=== PATIENT | male | born 1955 | race Hispanic/Latino ===

== ENCOUNTER 2019-10-08 19:08 | Inpatient (IN) | payer OTHER ==
[~2019-10-08] VITALS: Ht 170.2 cm; Wt 129.7 kg
[~2019-10-08 19:08] MED LIST: ASPI-1012 PO; HYDR-4154 PO
[2019-10-08 20:15] LABS: APPEARANCE,URINE Clear (CLEAR); BILIRUBIN,URINE Negative (NEGATIVE); COLOR,URINE Yellow (YELLOW); GLUCOSE, URINE (UA) Negative (NEGATIVE); KETONES,URINE Negative (NEGATIVE); LEUKOCYTE ESTERASE ,URINE Negative (NEGATIVE); NITRATE,URINE Negative (NEGATIVE); OCCULT BLOOD,URINE Nonhemolyzed Trace (NEGATIVE); PROTEIN,URINE 300 mg/dL (NEGATIVE)
[2019-10-08 20:16] LABS: BASOPHILS % (AUTO) 0.3 % (0.0-5.0); EOSINOPHILS % (AUTO) 3.8 % (0.0-8.0); MEAN CORPUSCULAR HEMOGLOBIN 27.5 pg (27.0-33.0); MEAN CORPUSCULAR HGB CONC 32.8 g/dL (32.0-36.0); MEAN CORPUSCULAR VOLUME 83.9 fL (79-99); MONOCYTES % (AUTO) 8.2 % (3.0-13.0); NEUTROPHILS % (AUTO) 74.7 % (40.0-77.0); PLATELET COUNT (AUTO) 190 K/uL (130-400); RED BLOOD CELL COUNT(AUTO) 3.34 MIL/uL (4.50-6.20); WHITE BLOOD COUNT (AUTO) 10.2 K/uL (4.8-10.8)
[2019-10-08 20:28] LABS: CREATININE 1.3 mg/dL (0.5-1.5); INR 0.99 (0.85-1.15); PARTIAL THROMBOPLASTIN TIME 30.9 SEC (26.3-35.5); POTASSIUM 3.5 mmol/L (3.5-5.1); PROTHROMBIN TIME 10.4 SEC (9.6-11.6)
[2019-10-08 20:30] LABS: BACTERIA,URINE Few /HPF (None Seen); RBC,URINE 0-1 /HPF (0-1); SQUAMOUS EPITHELIAL CELL,UR 0-2 /HPF (0-2); WBC,URINE 0-1 /HPF (0-1)
[2019-10-08 20:33] LABS: ALBUMIN 2.3 g/dL (3.5-5.0); BILIRUBIN,TOTAL 0.3 mg/dL (0.2-1.0)
[2019-10-08 20:39] LABS: B-TYPE NATRIURETIC PEPTIDE 317 pg/mL (0-100)
[2019-10-08] MEDS ORDERED: FUROSEMIDE 10 MG/ML 4ML VIAL ONE (21:57)
[2019-10-08] MEDS ORDERED: NITROGLYCERIN 1GM/1 INCH PACKET TD ONE (21:57)
[2019-10-08 23:20] VITALS: BP 181/87
[2019-10-08] MEDS ORDERED: ONDANSETRON HCL 4 MG/2 ML VIAL IVP PRN (23:45)
[2019-10-08] MEDS ORDERED: IPRATROPIUM/ALBUTEROL SULFATE 3 ML SOLUTION IH PRN (23:45)
[2019-10-08] MEDS ORDERED: ACETAMINOPHEN 325 MG TAB PO PRN (23:45)
--- NOTE | 2019-10-08 23:48 | NUR ---
BENCH ERNESTINA PAGED ELEVATED BP
[2019-10-09] MEDS ORDERED: NITROGLYCERIN 1GM/1 INCH PACKET TD ONE (00:29)
[2019-10-09] MEDS: HYDRALAZINE HCL 20 MG/ML VIAL IV PRN ×2 (00:33→08:45)
[2019-10-09 03:01] LABS: HEMATOCRIT 29.1 % (42-54); MEAN CORPUSCULAR HGB CONC 32.4 g/dL (32.0-36.0); MEAN CORPUSCULAR VOLUME 83.3 fL (79-99); PLATELET COUNT (AUTO) 202 K/uL (130-400); RED CELL DISTRIBUTION WIDTH 15.8 % (11.0-15.5); WHITE BLOOD COUNT (AUTO) 10.8 K/uL (4.8-10.8)
[2019-10-09 03:16] LABS: CREATININE 1.3 mg/dL (0.5-1.5); MAGNESIUM 1.8 mg/dL (1.80-2.40); PHOSPHORUS 3.6 mg/dL (2.5-4.9); POTASSIUM 3.6 mmol/L (3.5-5.1)
[2019-10-09 04:00] VITALS: BP 151/76
[2019-10-09] MEDS: FUROSEMIDE 10 MG/ML 4ML VIAL IV SCH ×3 (05:25→21:44)
[2019-10-09] MEDS ORDERED: NITROGLYCERIN 0.2 MG/HR PATCH TD SCH (06:00)
[2019-10-09 08:00] VITALS: BP 179/81
[2019-10-09] MEDS: LEVOFLOXACIN 500 MG TABLET PO SCH (08:44)
[2019-10-09] MEDS ORDERED: PANTOPRAZOLE SODIUM 40 MG TABLET.DR PO SCH (09:00)
[2019-10-09] MEDS ORDERED: ASPIRIN 81MG TAB.CHEW PO SCH (09:00)
[2019-10-09 11:00] VITALS: BP 174/94
[2019-10-09] MEDS: NITROGLYCERIN 1GM/1 INCH PACKET TD SCH (13:40)
[2019-10-09 16:00] VITALS: BP 155/73
--- NOTE | 2019-10-09 16:25 | NUR ---
D/C PLAN CM spoke to pt regarding d/c planning. Pt lives with girlfriend. Reports she assists with ADL's. States he also has provider about 20 hrs/week. States he has rollator wk at home. Plan to home. Pt has declined short term snf/rehab. CM to f/u. Addendum: 10/09/19 at 1626 by BRIAN COMBS CM Amended: Links added.
[2019-10-09] MEDS ORDERED: MAGNESIUM 2GM PREMIX 50ML 50 ML IV PRN (17:00)
[2019-10-09] MEDS ORDERED: DEXTROSE 50%-WATER 50 ML DISP.SYRIN IV PRN (17:00)
[2019-10-09] MEDS ORDERED: POTASSIUM CHLORIDE 10% ELIXIR 20 MEQ/15 ML UDCUP PO PRN (17:00)
[2019-10-09] MEDS ORDERED: POTASSIUM CHLORIDE 20MEQ/100ML 100 ML IV PRN (17:00)
[2019-10-09] MEDS ORDERED: GLUCAGON 1MG KIT 1 MG ML IM PRN (17:00)
[2019-10-09] MEDS: HYDRALAZINE HCL 25 MG TABLET PO SCH ×2 (18:50→21:41)
[2019-10-09] MEDS ORDERED: SODIUM CHLORIDE 3% FOR INHALATION 4 ML/AMP VIAL.NEB IH ONE (19:04)
[2019-10-09 20:00] VITALS: BP 157/72
[2019-10-09] MEDS ORDERED: IOHEXOL-350 75 ML VIAL IV ONE ×2 (20:17→20:53)
[2019-10-09] MEDS: INSULIN HUMULIN R 100 UNIT/ML 3ML SQ SCH (21:00)
[2019-10-09] MEDS: ATORVASTATIN CALCIUM 40 MG TABLET PO SCH (21:42)
[2019-10-09 23:44] VITALS: BP 150/69
[2019-10-10] MEDS: NITROGLYCERIN 1GM/1 INCH PACKET TD SCH ×2 (01:12→09:24)
[2019-10-10] MEDS: GUAIFENESIN-DM 200/20 MG 10 ML PO PRN ×2 (01:12→12:51)
[2019-10-10] MEDS: FUROSEMIDE 10 MG/ML 4ML VIAL IV SCH ×4 (03:35→21:00)
[2019-10-10 03:46] VITALS: BP 161/67
[2019-10-10 05:47] LABS: BASOPHILS % (AUTO) 0.3 % (0.0-5.0); EOSINOPHILS % (AUTO) 4.1 % (0.0-8.0); HEMATOCRIT 30.9 % (42-54); LYMPHOCYTES % (AUTO) 12.2 % (21.0-51.0); MEAN CORPUSCULAR HEMOGLOBIN 27.1 pg (27.0-33.0); MEAN CORPUSCULAR HGB CONC 32.7 g/dL (32.0-36.0); NEUTROPHILS % (AUTO) 76.4 % (40.0-77.0); PLATELET COUNT (AUTO) 236 K/uL (130-400); RED BLOOD CELL COUNT(AUTO) 3.72 MIL/uL (4.50-6.20); RED CELL DISTRIBUTION WIDTH 15.5 % (11.0-15.5); WHITE BLOOD COUNT (AUTO) 10.9 K/uL (4.8-10.8)
[2019-10-10] MEDS: INSULIN HUMULIN R 100 UNIT/ML 3ML SQ SCH ×4 (06:05→21:00)
[2019-10-10 06:08] LABS: ALBUMIN 2.6 g/dL (3.5-5.0); BILIRUBIN,TOTAL 0.4 mg/dL (0.2-1.0); CREATININE 1.4 mg/dL (0.5-1.5); MAGNESIUM 1.8 mg/dL (1.80-2.40); PHOSPHORUS 3.4 mg/dL (2.5-4.9); POTASSIUM 3.4 mmol/L (3.5-5.1); TOTAL PROTEIN, SERUM 7.8 g/dL (6.0-8.3)
[2019-10-10 06:10] LABS: B-TYPE NATRIURETIC PEPTIDE 294 pg/mL (0-100)
[2019-10-10] MEDS: PANTOPRAZOLE SODIUM 40 MG TABLET.DR PO SCH (06:36)
[2019-10-10 07:30] VITALS: BP 175/88
[2019-10-10 08:50] LABS: ABG BASE EXCESS 2.5 mmol/L (-2.0-3.0); ABG HCO3 26.9 mmol/L (21.0-28.0); ABG PCO2 41 mmHg (35-48)
[2019-10-10] MEDS: HYDRALAZINE HCL 25 MG TABLET PO SCH ×3 (09:25→21:00)
[2019-10-10] MEDS: ENOXAPARIN SODIUM 40 MG/0.4 ML SYRINGE SQ SCH (09:25)
[2019-10-10] MEDS: ASPIRIN 325 MG TABLET PO SCH (09:26)
[2019-10-10 11:00] VITALS: BP 186/91
[2019-10-10] MEDS: POTASSIUM CHLORIDE 20 MEQ ERTAB PO PRN ×2 (12:54→19:11)
[2019-10-10 16:00] VITALS: BP 157/71
--- NOTE | 2019-10-10 16:08 | NUR ---
ORDER FOR SNF- PT DECLINED. WANTS TO RETURN HOME - WILL FOLLOW UP W DR. GERMAN TOUSSAINT FOR HH. ADIVSED PT THAT WE WILL SEND INFO TO DR. YOUSIF OFFICE TO HELP WITH THE PROCESS. CM TO FOLLOW UP WITH PMD OFFICE IN Addendum: 10/10/19 at 1609 by BREANNE LAMBERT RN CM Amended: Links added.
[2019-10-10] MEDS: LOSARTAN 50 MG TABLET PO SCH (19:16)
[2019-10-10 20:00] VITALS: BP 151/73
[2019-10-10] MEDS: ATORVASTATIN CALCIUM 40 MG TABLET PO SCH (22:16)
[2019-10-10] MEDS ORDERED: SERT100T12 PO ×2 (22:25)
[2019-10-10] MEDS ORDERED: DIAZ10TA4 PO (22:25)
[2019-10-10] MEDS ORDERED: METO-391 PO (22:25)
[2019-10-10 23:52] VITALS: BP 172/85
[2019-10-11] MEDS: HYDRALAZINE HCL 20 MG/ML VIAL IV PRN (00:05)
[2019-10-11 03:31] VITALS: BP 148/57
[2019-10-11 05:11] LABS: HEMATOCRIT 28.7 % (42-54); MEAN CORPUSCULAR HEMOGLOBIN 26.8 pg (27.0-33.0); MEAN CORPUSCULAR HGB CONC 32.5 g/dL (32.0-36.0); MEAN CORPUSCULAR VOLUME 82.7 fL (79-99); PLATELET COUNT (AUTO) 224 K/uL (130-400); RED BLOOD CELL COUNT(AUTO) 3.47 MIL/uL (4.50-6.20); RED CELL DISTRIBUTION WIDTH 15.5 % (11.0-15.5); WHITE BLOOD COUNT (AUTO) 10.4 K/uL (4.8-10.8)
[2019-10-11] MEDS: INSULIN HUMULIN R 100 UNIT/ML 3ML SQ SCH ×3 (05:33→16:30)
[2019-10-11 05:35] LABS: CREATININE 1.4 mg/dL (0.5-1.5); POTASSIUM 3.2 mmol/L (3.5-5.1)
[2019-10-11] MEDS: PANTOPRAZOLE SODIUM 40 MG TABLET.DR PO SCH (06:01)
[2019-10-11] MEDS: POTASSIUM CHLORIDE 20 MEQ ERTAB PO PRN ×2 (06:01→10:05)
[2019-10-11] MEDS: GUAIFENESIN-DM 200/20 MG 10 ML PO PRN ×2 (06:21→13:21)
[2019-10-11 07:30] VITALS: BP 136/62
[2019-10-11] MEDS ORDERED: LOSARTAN 50 MG TABLET PO SCH (09:00)
[2019-10-11] MEDS ORDERED: FUROSEMIDE 20 MG TABLET PO SCH (09:00)
[2019-10-11] MEDS ORDERED: LOSA50TA2 PO (09:33)
[2019-10-11] MEDS ORDERED: LEVO500T2 PO (09:33)
[2019-10-11] MEDS ORDERED: ATOR40TA69 PO (09:33)
[2019-10-11] MEDS ORDERED: FURO20TA6 PO (09:33)
[2019-10-11] MEDS: ASPIRIN 325 MG TABLET PO SCH (09:57)
[2019-10-11] MEDS: HYDRALAZINE HCL 25 MG TABLET PO SCH ×2 (09:58→13:21)
[2019-10-11] MEDS: LEVOFLOXACIN 500 MG TABLET PO SCH (09:59)
[2019-10-11] MEDS: ENOXAPARIN SODIUM 40 MG/0.4 ML SYRINGE SQ SCH (10:00)
[2019-10-11 11:00] VITALS: BP 146/88
[2019-10-11] MEDS ORDERED: HONEY 1 APPL/ML TUBE TP SCH (15:26)
[2019-10-11] MEDS: LOSARTAN 50 MG TABLET PO SCH (15:31)
--- NOTE | 2019-10-11 15:40 | NUR ---
[facility] CONSULT PATIENT ASSESSED REQUESTED: PATIENT PRESENTS WITH VENOUS ULCERS TO RIGHT LOWER LEG MEDIAL AND TO LEFT PRE TIB; [facility] RECOMMENDATIONS SUBMITTED. Addendum: 10/12/19 at 1324 by BERHANE VILLAVICENCIO LVN LVN W Amended: Links added.
[2019-10-11 16:00] VITALS: BP 172/77
--- NOTE | 2019-10-11 17:34 | NUR ---
Pt. D/c home Using teach back technique re; home meds, new meds, s/s to watch for and when to call md or 911. Follow up with your primary docytor or Family Nurse Practitioner: Bakari on; 10/12/2019 at 3:15pm. Call if unable to attend appointment. Follow up with your station mechanic Dr. Knight on; 11/02/2019 at 2:20pm. Call if unable to attend appointment. Follow up for 2D-Echocardiogram. If having shortness of breath or chest pain that does not resolve with rest call 911. If having fevers greater than 101. call your primary doctor. Limit your salt intake and Follow a 1.5 liter fluid restriction diet to prevent fluid retention. Change wounds daily with applying medihoney, adaptic, 4x4's and cover with kerlix gauze to both of your legs. Follow up with your primary doctor to set up home health for wound healing. Continue lasix, twic a day. and Continue levaquin antibiotic for wound healing and respiratory infection. IV discontinued, no bleeding, dressing changes done, and pictures taken, supplies given for 1 week, teachings done to family and patient and will follow up with primary for h/h. Denies any distress, or questions. Verbalized understanding regarding, dressing changes. Rx. given to patient.
== END 2019-10-11 18:15 | disposition home or self-care (01) | DRG 291 ==
LOC: EDH 19:08 → 3AH 21:51
PROVIDERS: ADMIT Internal Medicine; ATTEND Internal Medicine
DX: I13.0 Hypertensive heart and chronic kidney disease with heart failure and stage 1 through stage 4 chronic kidney disease, or unspecified chronic kidney disease (principal); J18.9 Pneumonia, unspecified organism; I50.33 Acute on chronic diastolic (congestive) heart failure; L97.909 Non-pressure chronic ulcer of unspecified part of unspecified lower leg with unspecified severity; I25.10 Atherosclerotic heart disease of native coronary artery without angina pectoris; E11.9 Type 2 diabetes mellitus without complications; I48.91 Unspecified atrial fibrillation; F41.9 Anxiety disorder, unspecified; D64.9 Anemia, unspecified; E78.5 Hyperlipidemia, unspecified; F32.9 Major depressive disorder, single episode, unspecified; I87.2 Venous insufficiency (chronic) (peripheral); N18.3 Chronic kidney disease, stage 3 (moderate); E11.22 Type 2 diabetes mellitus with diabetic chronic kidney disease; Z95.1 Presence of aortocoronary bypass graft; Z79.82 Long term (current) use of aspirin
CPT/HCPCS: 36415; 36600; 71045; 71275; 80048; 80053; 81001; 82550; 82803; 82948; 83735; 83880; 84100; 84484; 85025; 85027; 85610; 85730; 87071; 87077; 87186; 87205; 93005; 93970; 94640; 94660; 94664; 97039; G0378; J0360; J1650; J1940; Q9967

== ENCOUNTER → 2020-02-11 | Outpatient (CLI) | payer OTHER ==
[~2020-02-11] MED LIST changes: +ATOR40TA69 PO; +DIAZ10TA4 PO; +FURO20TA6 PO; +LEVO500T2 PO; +LOSA50TA2 PO; +METO-391 PO; +SERT100T12 PO
== END | disposition home or self-care (01) ==
LOC: SHCH 10:00
PROVIDERS: ATTEND Internal Medicine Cardiovascular Disease
DX: I87.2 Venous insufficiency (chronic) (peripheral) (principal)
CPT/HCPCS: 93970

== ENCOUNTER 2020-04-01 17:52 | Inpatient (IN) | payer OTHER ==
[~2020-04-01] VITALS: Ht 175.3 cm; Wt 106.1 kg
[2020-04-01 18:09] LABS: APPEARANCE,URINE Clear (CLEAR); BILIRUBIN,URINE Negative (NEGATIVE); COLOR,URINE Yellow (YELLOW); GLUCOSE, URINE (UA) Negative (NEGATIVE); KETONES,URINE Negative (NEGATIVE); LEUKOCYTE ESTERASE ,URINE Negative (NEGATIVE); NITRATE,URINE Negative (NEGATIVE); OCCULT BLOOD,URINE Negative (NEGATIVE); PROTEIN,URINE 300 mg/dL (NEGATIVE)
[2020-04-01 18:24] LABS: BACTERIA,URINE None Seen /HPF (None Seen); RBC,URINE 0-1 /HPF (0-1); SQUAMOUS EPITHELIAL CELL,UR Rare /HPF (0-2); WBC,URINE None Seen /HPF (0-1)
[2020-04-01 18:26] LABS: BASOPHILS % (AUTO) 0.3 % (0.0-5.0); EOSINOPHILS % (AUTO) 2.1 % (0.0-8.0); HEMATOCRIT 38.4 % (42-54); LYMPHOCYTES % (AUTO) 12.8 % (21.0-51.0); MEAN CORPUSCULAR HEMOGLOBIN 28.7 pg (27.0-33.0); MEAN CORPUSCULAR HGB CONC 33.3 g/dL (32.0-36.0); MEAN CORPUSCULAR VOLUME 86.1 fL (79-99); MONOCYTES % (AUTO) 7.1 % (3.0-13.0); PLATELET COUNT (AUTO) 200 K/uL (130-400); RED BLOOD CELL COUNT(AUTO) 4.46 MIL/uL (4.50-6.20); RED CELL DISTRIBUTION WIDTH 13.7 % (11.0-15.5); WHITE BLOOD COUNT (AUTO) 9.8 K/uL (4.8-10.8)
[2020-04-01] MEDS ORDERED: NICARDIPINE HCL 50 MG in SODIUM CHLORIDE 0.9% 230 ML IV SCH (18:30)
[2020-04-01 18:31] LABS: AMPHET/METH SCREEN,URINE NEGATIVE (NEGATIVE); BARBITURATE SCREEN, URINE NEGATIVE (NEGATIVE); BENZODIAZEPINES SCREEN,URINE NEGATIVE (NEGATIVE); CANNABINOID SCREEN,URINE NEGATIVE (NEGATIVE); COCAINE SCREEN,URINE NEGATIVE (NEGATIVE); OPIATE SCREEN,URINE NEGATIVE (NEGATIVE); PHENCYCLIDINE SCREEN,URINE NEGATIVE (NEGATIVE)
[2020-04-01 18:39] LABS: CREATININE 1.8 mg/dL (0.5-1.5); POTASSIUM 3.7 mmol/L (3.5-5.1)
[2020-04-01 18:43] LABS: ALBUMIN 2.7 g/dL (3.5-5.0); BILIRUBIN,TOTAL 0.3 mg/dL (0.2-1.0); TOTAL PROTEIN, SERUM 6.9 g/dL (6.0-8.3)
[2020-04-01] MEDS ORDERED: TEMAZEPAM 30 MG CAP ONE (19:49)
[2020-04-01] MEDS ORDERED: LORAZEPAM 0.5 MG TABLET ONE (19:49)
[2020-04-01] MEDS ORDERED: ONDANSETRON HCL 4 MG/2 ML VIAL IVP PRN (20:30)
[2020-04-01] MEDS ORDERED: TEMAZEPAM 15 MG CAPSULE PO PRN (20:30)
[2020-04-01 22:45] VITALS: BP 182/90
[2020-04-01] MEDS ORDERED: TRAZ-187 PO (23:13)
[2020-04-01] MEDS ORDERED: TIZA4TAB5 PO ×2 (23:13→23:14)
[2020-04-01] MEDS ORDERED: FENO135C4 PO (23:13)
[2020-04-01] MEDS ORDERED: HYDRALAZINE HCL 20 MG/ML VIAL ONE (23:37)
[2020-04-02 04:00] VITALS: BP 148/62
[2020-04-02 05:14] LABS: HEMATOCRIT 38.2 % (42-54); MEAN CORPUSCULAR HEMOGLOBIN 28.2 pg (27.0-33.0); MEAN CORPUSCULAR VOLUME 85.5 fL (79-99); RED BLOOD CELL COUNT(AUTO) 4.47 MIL/uL (4.50-6.20); RED CELL DISTRIBUTION WIDTH 13.8 % (11.0-15.5); WHITE BLOOD COUNT (AUTO) 12.3 K/uL (4.8-10.8)
[2020-04-02 05:27] LABS: CREATININE 1.8 mg/dL (0.5-1.5); POTASSIUM 3.2 mmol/L (3.5-5.1)
[2020-04-02] MEDS: HYDRALAZINE HCL 20 MG/ML VIAL IV PRN ×2 (07:55→20:29)
[2020-04-02 08:00] VITALS: BP 181/86
--- NOTE | 2020-04-02 08:00 | NUR ---
BLOOD PRESSURE BLOOD PRESSURE 181/86 , MEDICATED WITH HYDRALAZINE 10MG IVP QUYEN JULES NOTIFIED MANAGER REPORT , ORDER FOR CARDENE D/C AND DIET FOR HEALTH HEART ORDERED , WILL CONTINUE TO MONITOR
[2020-04-02] MEDS: SERTRALINE HCL 50 MG TABLET PO SCH (09:21)
[2020-04-02] MEDS: FAMOTIDINE 20MG TAB 20 MG TAB PO SCH (09:21)
[2020-04-02] MEDS: LOSARTAN 50 MG TABLET PO SCH (09:21)
[2020-04-02] MEDS: ASPIRIN 325 MG TABLET PO SCH (09:22)
[2020-04-02 11:28] VITALS: BP 143/69
[2020-04-02] MEDS ORDERED: LIDOCAINE HCL-MPF 1% 2ML VIAL IV PRN (12:30)
[2020-04-02] MEDS ORDERED: POTASSIUM CHLORIDE 20MEQ/100ML 100 ML IV PRN (12:30)
[2020-04-02] MEDS ORDERED: MAGNESIUM 2GM PREMIX 50ML 50 ML IV PRN (12:30)
[2020-04-02] MEDS ORDERED: POTASSIUM CHLORIDE 10% ELIXIR 20 MEQ/15 ML UDCUP PO PRN (12:30)
[2020-04-02] MEDS: POTASSIUM CHLORIDE 20 MEQ ERTAB PO PRN (12:59)
[2020-04-02] MEDS: ACETAMINOPHEN 325 MG TAB PO PRN (12:59)
[2020-04-02] MEDS: LISINOPRIL 5 MG TABLET PO SCH (14:37)
--- NOTE | 2020-04-02 14:39 | NUR ---
cm note met with patient and states resides at home , rents a room from a private boarder home. states he uses walker and cane for ambulation, has provider 26hrs /week for adls assist, states dc plan is back to home at time of dc. states no dc needs. Addendum: 04/02/20 at 1444 by DESI GREWAL CM Amended: Links added.
[2020-04-02 16:00] VITALS: BP 151/78
[2020-04-02 19:24] VITALS: BP 184/91
[2020-04-02] MEDS: ATORVASTATIN CALCIUM 40 MG TABLET PO SCH (20:28)
[2020-04-02 23:12] VITALS: BP 166/75
[2020-04-03 02:08] LABS: HEMATOCRIT 38.3 % (42-54); MEAN CORPUSCULAR HEMOGLOBIN 28.7 pg (27.0-33.0); MEAN CORPUSCULAR HGB CONC 33.2 g/dL (32.0-36.0); MEAN CORPUSCULAR VOLUME 86.5 fL (79-99); RED BLOOD CELL COUNT(AUTO) 4.43 MIL/uL (4.50-6.20); RED CELL DISTRIBUTION WIDTH 13.9 % (11.0-15.5); WHITE BLOOD COUNT (AUTO) 11.5 K/uL (4.8-10.8)
[2020-04-03 02:31] LABS: ALBUMIN 2.5 g/dL (3.5-5.0); BILIRUBIN,DIRECT 0.1 mg/dL (0.0-0.3); BILIRUBIN,TOTAL 0.4 mg/dL (0.2-1.0); CREATININE 1.7 mg/dL (0.5-1.5); MAGNESIUM 2.9 mg/dL (1.80-2.40); PHOSPHORUS 3.9 mg/dL (2.5-4.9); POTASSIUM 3.8 mmol/L (3.5-5.1); TOTAL PROTEIN, SERUM 6.3 g/dL (6.0-8.3)
[2020-04-03 03:00] VITALS: BP 152/67
[2020-04-03 08:06] VITALS: BP 155/79
[2020-04-03] MEDS: TAMSULOSIN HCL 0.4 MG CAP.ER.24H PO SCH (09:15)
[2020-04-03] MEDS: LOSARTAN 50 MG TABLET PO SCH (09:16)
[2020-04-03] MEDS: LISINOPRIL 5 MG TABLET PO SCH (09:16)
[2020-04-03] MEDS: FAMOTIDINE 20MG TAB 20 MG TAB PO SCH (09:16)
[2020-04-03] MEDS: SERTRALINE HCL 50 MG TABLET PO SCH (09:17)
[2020-04-03] MEDS: ASPIRIN 325 MG TABLET PO SCH (09:17)
[2020-04-03] MEDS: ACETAMINOPHEN 325 MG TAB PO PRN (09:24)
[2020-04-03 11:00] VITALS: BP 149/67
[2020-04-03 15:34] VITALS: BP 162/75
[2020-04-03 19:00] VITALS: BP 173/89
[2020-04-03] MEDS: ATORVASTATIN CALCIUM 40 MG TABLET PO SCH (20:54)
[2020-04-03] MEDS: LORAZEPAM 0.5 MG TABLET PO PRN (20:54)
[2020-04-03] MEDS: POTASSIUM CHLORIDE 20 MEQ ERTAB PO PRN (20:55)
[2020-04-04] VITALS (7 sets, daily range): BP systolic 130–179; BP diastolic 58–87
[2020-04-04 03:54] LABS: HEMATOCRIT 38.5 % (42-54); MEAN CORPUSCULAR HGB CONC 33.2 g/dL (32.0-36.0); MEAN CORPUSCULAR VOLUME 87.1 fL (79-99); RED BLOOD CELL COUNT(AUTO) 4.42 MIL/uL (4.50-6.20); RED CELL DISTRIBUTION WIDTH 13.9 % (11.0-15.5); WHITE BLOOD COUNT (AUTO) 10.2 K/uL (4.8-10.8)
[2020-04-04 04:11] LABS: CREATININE 1.8 mg/dL (0.5-1.5); POTASSIUM 3.7 mmol/L (3.5-5.1)
[2020-04-04] MEDS: HYDRALAZINE HCL 20 MG/ML VIAL IV PRN ×2 (05:56→14:09)
[2020-04-04] MEDS: POTASSIUM CHLORIDE 20 MEQ ERTAB PO PRN ×2 (05:58→08:54)
[2020-04-04] MEDS: FAMOTIDINE 20MG TAB 20 MG TAB PO SCH (08:53)
[2020-04-04] MEDS: ASPIRIN 325 MG TABLET PO SCH (08:54)
[2020-04-04] MEDS: SERTRALINE HCL 50 MG TABLET PO SCH (08:54)
[2020-04-04] MEDS: LOSARTAN 50 MG TABLET PO SCH (08:54)
[2020-04-04] MEDS: TAMSULOSIN HCL 0.4 MG CAP.ER.24H PO SCH (08:54)
[2020-04-04] MEDS: LISINOPRIL 5 MG TABLET PO SCH (08:54)
[2020-04-04] MEDS: ACETAMINOPHEN 325 MG TAB PO PRN (08:57)
[2020-04-04] MEDS: METOPROLOL SUCCINATE 50 MG TAB.SR.24H PO SCH (20:21)
[2020-04-04] MEDS: ATORVASTATIN CALCIUM 40 MG TABLET PO SCH (20:21)
[2020-04-04] MEDS: LORAZEPAM 0.5 MG TABLET PO PRN (20:28)
[2020-04-05] VITALS (7 sets, daily range): BP systolic 129–189; BP diastolic 61–89
[2020-04-05] MEDS: HYDRALAZINE HCL 20 MG/ML VIAL IV PRN (05:12)
--- NOTE | 2020-04-05 08:00 | NUR ---
note AAOX3. NPO FOR HIDA SCAN TODAY. HE CAME IN WITH ABDOMINAL DISCOMFORT AND UNCONTROLLED HTN. US ABDOMEN AND CT SHOW GALLSTONES AND BORDERLINE GB WALL THICKENING. SURGERY CONSULT WAS ORDERED YESTERDAY. WILL RELAY RESULTS FROM HIDA TO SURGEON.
[2020-04-05] MEDS ORDERED: LOSARTAN 50 MG TABLET PO SCH (09:00)
[2020-04-05] MEDS: TAMSULOSIN HCL 0.4 MG CAP.ER.24H PO SCH (12:04)
[2020-04-05] MEDS: FAMOTIDINE 20MG TAB 20 MG TAB PO SCH (12:04)
[2020-04-05] MEDS: SERTRALINE HCL 50 MG TABLET PO SCH (12:05)
[2020-04-05] MEDS: METOPROLOL SUCCINATE 50 MG TAB.SR.24H PO SCH ×2 (12:05→20:28)
[2020-04-05] MEDS: ASPIRIN 325 MG TABLET PO SCH (12:05)
[2020-04-05] MEDS: HYDRALAZINE HCL 25 MG TABLET PO SCH ×2 (17:06→20:28)
[2020-04-05] MEDS: ZOSYN 3.375GM+NS 50ML 50 ML IV SCH ×2 (17:07→23:42)
--- NOTE | 2020-04-05 17:45 | NUR ---
NOTE SPOKE TO ANISH YIP FOR DR KRUGER AND ARA AND HE TOLD ME THAT NO SURGERY RECOMMENDED AT THIS TIME. INFORMED STUART ROY ABOUT THIS. AND RESULTS FROM HIDA SCAN SINCE THEY WERE NOT AVAILABLE WHEN SHE ROUNDED.
[2020-04-05] MEDS: ACETAMINOPHEN 325 MG TAB PO PRN (20:28)
[2020-04-05] MEDS: ATORVASTATIN CALCIUM 40 MG TABLET PO SCH (20:28)
[2020-04-05] MEDS: LORAZEPAM 0.5 MG TABLET PO PRN (23:42)
[2020-04-06 04:00] VITALS: BP 148/76
[2020-04-06 04:16] LABS: BASOPHILS % (AUTO) 0.4 % (0.0-5.0); EOSINOPHILS % (AUTO) 3.1 % (0.0-8.0); HEMATOCRIT 40.3 % (42-54); MEAN CORPUSCULAR HEMOGLOBIN 28.5 pg (27.0-33.0); MEAN CORPUSCULAR HGB CONC 32.3 g/dL (32.0-36.0); MEAN CORPUSCULAR VOLUME 88.4 fL (79-99); MONOCYTES % (AUTO) 7.8 % (3.0-13.0); NEUTROPHILS % (AUTO) 70.1 % (40.0-77.0); PLATELET COUNT (AUTO) 216 K/uL (130-400); RED BLOOD CELL COUNT(AUTO) 4.56 MIL/uL (4.50-6.20); WHITE BLOOD COUNT (AUTO) 10.1 K/uL (4.8-10.8)
[2020-04-06 04:34] LABS: ALBUMIN 2.6 g/dL (3.5-5.0); BILIRUBIN,TOTAL 0.4 mg/dL (0.2-1.0); MAGNESIUM 2.2 mg/dL (1.80-2.40); POTASSIUM 3.9 mmol/L (3.5-5.1); TOTAL PROTEIN, SERUM 6.6 g/dL (6.0-8.3)
[2020-04-06 07:52] VITALS: BP 164/80
[2020-04-06] MEDS: METOPROLOL SUCCINATE 50 MG TAB.SR.24H PO SCH (08:06)
[2020-04-06] MEDS: FAMOTIDINE 20MG TAB 20 MG TAB PO SCH (08:06)
[2020-04-06] MEDS: HYDRALAZINE HCL 25 MG TABLET PO SCH (08:07)
[2020-04-06] MEDS: TAMSULOSIN HCL 0.4 MG CAP.ER.24H PO SCH (08:07)
[2020-04-06] MEDS: SERTRALINE HCL 50 MG TABLET PO SCH (08:07)
[2020-04-06] MEDS: ASPIRIN 325 MG TABLET PO SCH (08:07)
[2020-04-06] MEDS: ZOSYN 3.375GM+NS 50ML 50 ML IV SCH (08:08)
[2020-04-06] MEDS ORDERED: ASPI-1197 PO (11:13)
[2020-04-06] MEDS ORDERED: TAMS-1 PO (11:13)
[2020-04-06] MEDS ORDERED: HYDR25 PO (11:13)
[2020-04-06 11:47] VITALS: BP 154/65
--- NOTE | 2020-04-06 11:59 | NUR ---
BLADDER SCAN 200CC VOIDED. 126CC VIA BLADDER SCAN. PER SUSY PARSON TO [place]
[2020-04-06] MEDS ORDERED: LACTULOSE 20 GM/30 ML UDCUP PO SCH (12:00)
== END 2020-04-06 13:20 | disposition home or self-care (01) | DRG 304 ==
LOC: EDH 17:52 → INTOOBSV 19:26 → OBSVTOIN 19:26 → EDHIP 19:26 → DAHIP 21:11 → 4CH 21:47
PROVIDERS: ADMIT Internal Medicine Critical Care Medicine; ATTEND Internal Medicine Critical Care Medicine
DX: I16.0 Hypertensive urgency (principal); E43 Unspecified severe protein-calorie malnutrition; K80.70 Calculus of gallbladder and bile duct without cholecystitis without obstruction; R33.9 Retention of urine, unspecified; I25.10 Atherosclerotic heart disease of native coronary artery without angina pectoris; F41.9 Anxiety disorder, unspecified; E11.9 Type 2 diabetes mellitus without complications; Z95.5 Presence of coronary angioplasty implant and graft; Z95.1 Presence of aortocoronary bypass graft; E66.9 Obesity, unspecified; Z79.899 Other long term (current) drug therapy; Z68.34 Body mass index [BMI] 34.0-34.9, adult; I10 Essential (primary) hypertension; N19 Unspecified kidney failure; Z79.82 Long term (current) use of aspirin; Z86.14 Personal history of Methicillin resistant Staphylococcus aureus infection; Z88.5 Allergy status to narcotic agent; F32.9 Major depressive disorder, single episode, unspecified
CPT/HCPCS: 36415; 71045; 74176; 76705; 76770; 78226; 80048; 80053; 80076; 80305; 81001; 82150; 82550; 82948; 83690; 83735; 83880; 84100; 84132; 84484; 85025; 85027; 93005; A9537; G0378; J0360; J2543; J3490; J7050

== ENCOUNTER 2020-10-05 16:12 | Inpatient (IN) | payer OTHER ==
[~2020-10-05] VITALS: Ht 175.3 cm; Wt 107.5 kg
[~2020-10-05 16:12] MED LIST changes: -ASPI-1012 PO; +ASPI-1197 PO; -DIAZ10TA4 PO; +FENO135C4 PO; -FURO20TA6 PO; -HYDR-4154 PO; +HYDR25 PO; -LEVO500T2 PO; -LOSA50TA2 PO; +TAMS-1 PO; +TIZA4TAB5 PO; +TRAZ-187 PO
[2020-10-05 17:47] LABS: BASOPHILS % (AUTO) 0.6 % (0.0-5.0); EOSINOPHILS % (AUTO) 2.8 % (0.0-8.0); HEMATOCRIT 32.7 % (42-54); LYMPHOCYTES % (AUTO) 13.6 % (21.0-51.0); MEAN CORPUSCULAR HEMOGLOBIN 29.1 pg (27.0-33.0); MEAN CORPUSCULAR HGB CONC 31.2 g/dL (32.0-36.0); MEAN CORPUSCULAR VOLUME 93.2 fL (79-99); MONOCYTES % (AUTO) 8.9 % (3.0-13.0); NEUTROPHILS % (AUTO) 73.2 % (40.0-77.0); PLATELET COUNT (AUTO) 181 K/uL (130-400); RED BLOOD CELL COUNT(AUTO) 3.51 MIL/uL (4.50-6.20); RED CELL DISTRIBUTION WIDTH 14.3 % (11.0-15.5); WHITE BLOOD COUNT (AUTO) 9.1 K/uL (4.8-10.8)
[2020-10-05 18:03] LABS: ALBUMIN 3.4 g/dL (3.5-5.0); BILIRUBIN,TOTAL 0.3 mg/dL (0.2-1.0); CREATININE 2.7 mg/dL (0.5-1.5); POTASSIUM 4.9 mmol/L (3.5-5.1); TOTAL PROTEIN, SERUM 7.3 g/dL (6.0-8.3)
[2020-10-05 18:12] LABS: B-TYPE NATRIURETIC PEPTIDE 1020 pg/mL (0-100)
[2020-10-05 18:25] LABS: PARTIAL THROMBOPLASTIN TIME 27.1 SEC (26.3-35.5); PROTHROMBIN TIME 10.8 SEC (9.6-11.6)
[2020-10-05 18:58] VITALS: BP 119/71
[2020-10-05] MEDS ORDERED: NON-FORMULARY MEDICATION 1 EACH (Tizanidine HCl 4 MG) PO SCH (21:00)
[2020-10-05] MEDS: TRAZODONE HCL 100 MG TABLET PO SCH (21:48)
[2020-10-05] MEDS: ATORVASTATIN CALCIUM 40 MG TABLET PO SCH (21:48)
[2020-10-05] MEDS: TIZANIDINE HCL 2 MG TABLET PO SCH (21:52)
[2020-10-05] MEDS ORDERED: SPIR25TA6 PO (23:17)
[2020-10-05] MEDS ORDERED: GABA600T10 PO (23:17)
[2020-10-05] MEDS ORDERED: HYDR-3420 PO (23:17)
[2020-10-05] MEDS ORDERED: FURO40TA5 PO (23:17)
[2020-10-05] MEDS ORDERED: AMLO-257 PO (23:17)
[2020-10-05] MEDS ORDERED: LOSA100T58 PO (23:17)
--- NOTE | 2020-10-05 23:19 | NUR ---
HOME MEDICATIONS HAVE BEEN UPDATED INTO RECONCILE MEDS- PER PT'S MAR FROM [facility]
[2020-10-05] MEDS: HYDRALAZINE HCL 25 MG TABLET PO SCH (23:48)
[2020-10-05 23:57] VITALS: BP 152/63
--- NOTE | 2020-10-06 00:02 | NUR ---
note PT REPORTS THE BIPAP FEELS "TOO STRONG". PAGED LÓPEZ, RT - SAID HE WOULD COME RESSESS THE PT. INFORMED PT THAT I NEED TO BLADDER SCAN HIM AFTER HE VOIDS, TO CALL ME ON THE CALL LIGHT ONCE HE VOIDS-PT VERBALIZED AGREEMENT. CALL LIGHT ON PT'S LAP WITHIN REACH.
[2020-10-06 04:00] VITALS: BP 146/66
--- NOTE | 2020-10-06 06:00 | NUR ---
GARCIA INSERTED PER WILLIS'S STANDING ORDER- REFER TO NURSING COMMUNICATION. BLADDER SCAN RESIDUAL >416 ML. INFORMED PT OF NECESSITY FOR FC AND PT EDUCATION, PT AGREED TO HAVING FC INSERTED. PERICARE PROVIDED. STERILE TECHNIQUE USED DURING NURSING INTERVENTION. 16 FR FC INSERTED W/O C/O PAIN OR DISCOMFORT. 600 CC CLEAR, YELLOW, URINE FLOWED FREELY INTO GARCIA BAG. SECURED BAG TO RIGHT THIGH. BED HANGIN ON NON-MOVEABLE PART OF BED FRAME. BARD CEO NA GARCIA BAG, AND IN PT CHART.
[2020-10-06] MEDS ORDERED: SODIUM CHLORIDE 0.9% 1000ML 1,000 ML IV SCH (07:30)
[2020-10-06 08:00] VITALS: BP 164/70
[2020-10-06 08:11] LABS: CREATININE 2.6 mg/dL (0.5-1.5); POTASSIUM 4.6 mmol/L (3.5-5.1)
--- NOTE | 2020-10-06 08:13 | NUR ---
ISOLATION STATUS ENHANCED DUE TO PUI STATUS. Addendum: 10/06/20 at 0824 by GERARDO PULLIAM RN RN Amended: Links added.
[2020-10-06] MEDS: FENOFIBRIC ACID 135 MG PO SCH (08:55)
[2020-10-06] MEDS ORDERED: NON-FORMULARY MEDICATION 1 EACH (Sertraline HCl 100 MG) PO SCH (09:00)
[2020-10-06] MEDS ORDERED: METOPROLOL SUCCINATE 50 MG TAB.SR.24H PO SCH (09:00)
[2020-10-06] MEDS ORDERED: FENOFIBRIC ACID 135 MG PO SCH (09:00)
[2020-10-06] MEDS: ASPIRIN 81MG TAB.CHEW PO SCH (09:05)
[2020-10-06] MEDS: SERTRALINE HCL 50 MG TABLET PO SCH (09:05)
[2020-10-06] MEDS: TAMSULOSIN HCL 0.4 MG CAP.ER.24H PO SCH (09:05)
[2020-10-06] MEDS: HYDRALAZINE HCL 25 MG TABLET PO SCH ×3 (09:05→22:13)
[2020-10-06 10:56] LABS: RETICULOCYTE % (AUTO) 2.28 % (0.42-2.23)
[2020-10-06] MEDS ORDERED: HYDRALAZINE HCL 20 MG/ML VIAL IV PRN (11:00)
[2020-10-06 11:36] LABS: % IRON SATURATION 15.2 % (30-44)
--- NOTE | 2020-10-06 11:38 | NUR ---
[facility] DC Wine Sales Representative spoke to pt's spouse Ml Luis discussed dc plans. Pt is semi-independent prior to admission, lives at home with spouse. Pt has a cane, walker, oxygen concentrator, provider 25hrs/wk(spouse is provider). Denies any other equipments/services. Feels safe to go back home, spouse able to assist with transportation and need as necessary. DC plan to home once stable. CM to continue to follow up. Addendum: 10/06/20 at 1140 by MICHA ROMERO LVN Amended: Links added.
[2020-10-06 12:00] VITALS: BP 142/55
[2020-10-06 13:41] LABS: APPEARANCE,URINE Clear (CLEAR); BILIRUBIN,URINE Negative (NEGATIVE); COLOR,URINE Yellow (YELLOW); GLUCOSE, URINE (UA) Negative (NEGATIVE); KETONES,URINE Negative (NEGATIVE); LEUKOCYTE ESTERASE ,URINE Trace (NEGATIVE); NITRATE,URINE Negative (NEGATIVE); OCCULT BLOOD,URINE Trace (NEGATIVE); PROTEIN,URINE POS 2+ mg/dL (NEGATIVE); UROBILINOGEN,URINE 0.2 mg/dL (0.2-1.0)
[2020-10-06 14:05] LABS: BACTERIA,URINE Few /HPF (None Seen); SQUAMOUS EPITHELIAL CELL,UR 0-2 /HPF (0-2); WBC,URINE 0-1 /HPF (0-1)
[2020-10-06 16:00] VITALS: BP 153/52
--- NOTE | 2020-10-06 16:36 | NUR ---
RD NOTIFICATION Pt admitted with CHF Exacerbation. Enhanced Isolation, COVID PUI. Pt history of Triple Bypass Sx, CHF. Pt with 75gm CC diet order in place. No report of GI distress. Monitored labs: BUN 43, Cr 2.6, GFR 26, Alk 46, NH3 47, Alb 3.4. Obesity Class III. Recommend add Renal Non-Dialysis, Heart Healthy diet modification. RD to follow up with Nutrition Education
--- NOTE | 2020-10-06 16:44 | NUR ---
1640 UNABLE TO GET SIGNATURE FOR IM LETTER,PATIENT ON ENHANCED PRECAUTIONS. NO ANSWER VIA PHONE,WILL EMAIL FINANCIAL COUNSELORS TO ASSIST OVER WEEKEND.
[2020-10-06] MEDS: FUROSEMIDE 10 MG/ML 4ML VIAL IV SCH (17:56)
[2020-10-06 20:00] VITALS: BP 148/38
[2020-10-06] MEDS: TRAZODONE HCL 100 MG TABLET PO SCH (22:10)
[2020-10-06] MEDS: ATORVASTATIN CALCIUM 40 MG TABLET PO SCH (22:10)
[2020-10-06] MEDS: TIZANIDINE HCL 2 MG TABLET PO SCH (22:10)
[2020-10-06] MEDS: METOPROLOL TARTRATE 25 MG TAB PO SCH (22:11)
[2020-10-07] VITALS (7 sets, daily range): BP systolic 130–153; BP diastolic 56–70
[2020-10-07] MEDS: FUROSEMIDE 10 MG/ML 4ML VIAL IV SCH ×3 (01:13→16:36)
[2020-10-07 06:04] LABS: HEMATOCRIT 30.3 % (42-54); MEAN CORPUSCULAR HEMOGLOBIN 28.9 pg (27.0-33.0); MEAN CORPUSCULAR HGB CONC 32.7 g/dL (32.0-36.0); MEAN CORPUSCULAR VOLUME 88.6 fL (79-99); RED BLOOD CELL COUNT(AUTO) 3.42 MIL/uL (4.50-6.20); RED CELL DISTRIBUTION WIDTH 13.5 % (11.0-15.5); WHITE BLOOD COUNT (AUTO) 9.7 K/uL (4.8-10.8)
[2020-10-07 06:18] LABS: CREATININE 2.6 mg/dL (0.5-1.5); POTASSIUM 3.8 mmol/L (3.5-5.1)
[2020-10-07] MEDS: FENOFIBRIC ACID 135 MG PO SCH (08:41)
[2020-10-07] MEDS: FAMOTIDINE 20MG TAB 20 MG TAB PO SCH (08:50)
[2020-10-07] MEDS: ASPIRIN 81MG TAB.CHEW PO SCH (08:50)
[2020-10-07] MEDS: TAMSULOSIN HCL 0.4 MG CAP.ER.24H PO SCH (08:50)
[2020-10-07] MEDS: SERTRALINE HCL 50 MG TABLET PO SCH (08:50)
[2020-10-07] MEDS: HYDRALAZINE HCL 25 MG TABLET PO SCH ×3 (08:53→20:51)
[2020-10-07] MEDS: AMLODIPINE BESYLATE 5 MG TAB PO SCH (08:54)
[2020-10-07] MEDS: METOPROLOL TARTRATE 25 MG TAB PO SCH ×2 (08:54→20:51)
[2020-10-07] MEDS: ENOXAPARIN SODIUM 30 MG/0.3 ML SQ SCH (08:55)
--- NOTE | 2020-10-07 13:11 | NUR ---
95% pre 90% during ( lowest) 95% post 6 MWT on room air HR 65-82 bpm Addendum: 10/07/20 at 1313 by KRISHNA LOMBARDI, PT PT Amended: Links added.
[2020-10-07] MEDS: TIZANIDINE HCL 2 MG TABLET PO SCH (20:51)
[2020-10-07] MEDS: ATORVASTATIN CALCIUM 40 MG TABLET PO SCH (20:51)
[2020-10-07] MEDS: TRAZODONE HCL 100 MG TABLET PO SCH (20:51)
[2020-10-08] MEDS ORDERED: LIDOCAINE HCL 2% JELLY 5 ML ONE (01:16)
[2020-10-08] MEDS: FUROSEMIDE 10 MG/ML 4ML VIAL IV SCH ×2 (01:33→16:28)
[2020-10-08 04:00] VITALS: BP 152/70
--- NOTE | 2020-10-08 04:00 | NUR ---
NOTE PT C/O DISCOMFORT AT GARCIA INSERTION SITE. PROVIDED DELIA CARE. DRIED AREA AND APPLIED LIDOCAINE JELL TO URINARY MEATUS. AFTER APPLYING JELL, PT REPORTS HE FEELS THE DISCOMFORT "VERY MINIMAL NOW". WILL PASS ALONG IN REPORT TO DAY SHIFT NURSE TO FOLLOW UP THROUGHOUT THE DAY AND INFORM ROUNDING PHYSICIAN.
[2020-10-08 06:03] LABS: CREATININE 2.8 mg/dL (0.5-1.5); MAGNESIUM 2.1 mg/dL (1.80-2.40); POTASSIUM 3.4 mmol/L (3.5-5.1)
[2020-10-08 06:05] LABS: HEMOGLOBIN A1C 5.5 % (4.0-6.0)
[2020-10-08 08:00] VITALS: BP 150/60
[2020-10-08] MEDS: AMLODIPINE BESYLATE 5 MG TAB PO SCH (08:37)
[2020-10-08] MEDS: SERTRALINE HCL 50 MG TABLET PO SCH (08:37)
[2020-10-08] MEDS: FAMOTIDINE 20MG TAB 20 MG TAB PO SCH (08:37)
[2020-10-08] MEDS: ASPIRIN 81MG TAB.CHEW PO SCH (08:38)
[2020-10-08] MEDS: METOPROLOL TARTRATE 25 MG TAB PO SCH ×2 (08:38→21:12)
[2020-10-08] MEDS: FENOFIBRIC ACID 135 MG PO SCH (08:39)
[2020-10-08] MEDS: TAMSULOSIN HCL 0.4 MG CAP.ER.24H PO SCH (08:39)
[2020-10-08] MEDS: ENOXAPARIN SODIUM 30 MG/0.3 ML SQ SCH (08:39)
[2020-10-08] MEDS: HYDRALAZINE HCL 25 MG TABLET PO SCH ×3 (08:42→21:12)
[2020-10-08] MEDS ORDERED: FUROSEMIDE 40 MG TABLET PO SCH (09:00)
[2020-10-08 11:00] VITALS: BP 162/66
[2020-10-08 16:00] VITALS: BP 181/55
[2020-10-08 20:00] VITALS: BP 133/54
[2020-10-08] MEDS: ISOSORBIDE MONO 30MG TAB SR PO SCH (21:12)
[2020-10-08] MEDS: ATORVASTATIN CALCIUM 40 MG TABLET PO SCH (21:12)
[2020-10-08] MEDS: TRAZODONE HCL 100 MG TABLET PO SCH (21:12)
[2020-10-08] MEDS: TIZANIDINE HCL 2 MG TABLET PO SCH (21:12)
[2020-10-09] VITALS: BP 123/57
--- NOTE | 2020-10-09 03:32 | NUR ---
TELEMETRY Notified per telemetry pt has episode of wide complex rhythm,rate 60's.Pt denies chesp pain or sob.Vs taken per staff.
[2020-10-09 03:35] VITALS: BP 113/69
[2020-10-09] MEDS: FUROSEMIDE 10 MG/ML 4ML VIAL IV SCH (03:47)
[2020-10-09 06:30] LABS: CREATININE 2.9 mg/dL (0.5-1.5); MAGNESIUM 2.3 mg/dL (1.80-2.40); POTASSIUM 3.3 mmol/L (3.5-5.1)
[2020-10-09 07:57] VITALS: BP 122/64
[2020-10-09] MEDS: FENOFIBRIC ACID 135 MG PO SCH (09:00)
[2020-10-09] MEDS: METOPROLOL TARTRATE 25 MG TAB PO SCH ×2 (09:00→20:22)
[2020-10-09] MEDS ORDERED: FUROSEMIDE 10 MG/ML 4ML VIAL IV SCH (09:00)
[2020-10-09] MEDS: FAMOTIDINE 20MG TAB 20 MG TAB PO SCH (09:27)
[2020-10-09] MEDS: TAMSULOSIN HCL 0.4 MG CAP.ER.24H PO SCH (09:27)
[2020-10-09] MEDS: ASPIRIN 81MG TAB.CHEW PO SCH (09:27)
[2020-10-09] MEDS: HYDRALAZINE HCL 25 MG TABLET PO SCH ×3 (09:27→20:23)
[2020-10-09] MEDS: SERTRALINE HCL 50 MG TABLET PO SCH (09:27)
[2020-10-09] MEDS: ISOSORBIDE MONO 30MG TAB SR PO SCH ×2 (09:28→20:22)
[2020-10-09] MEDS: ENOXAPARIN SODIUM 30 MG/0.3 ML SQ SCH (09:29)
[2020-10-09 11:32] VITALS: BP 130/62
[2020-10-09] MEDS: PHENAZOPYRIDINE HCL 200 MG TABLET PO SCH ×2 (14:53→20:22)
[2020-10-09 16:56] VITALS: BP 135/59
[2020-10-09] MEDS ORDERED: FUROSEMIDE 40 MG TABLET PO SCH (17:00)
[2020-10-09 20:00] VITALS: BP 123/64
[2020-10-09] MEDS: TRAZODONE HCL 100 MG TABLET PO SCH (20:22)
[2020-10-09] MEDS: TIZANIDINE HCL 2 MG TABLET PO SCH (20:22)
[2020-10-09] MEDS: ATORVASTATIN CALCIUM 40 MG TABLET PO SCH (20:23)
[2020-10-10] VITALS: BP 134/64
[2020-10-10 04:00] VITALS: BP 128/62
[2020-10-10 05:25] LABS: HEMATOCRIT 31.1 % (42-54); MEAN CORPUSCULAR HEMOGLOBIN 28.9 pg (27.0-33.0); MEAN CORPUSCULAR HGB CONC 33.1 g/dL (32.0-36.0); MEAN CORPUSCULAR VOLUME 87.4 fL (79-99); RED BLOOD CELL COUNT(AUTO) 3.56 MIL/uL (4.50-6.20); RED CELL DISTRIBUTION WIDTH 13.2 % (11.0-15.5); WHITE BLOOD COUNT (AUTO) 10.1 K/uL (4.8-10.8)
[2020-10-10 05:35] LABS: CREATININE 3.1 mg/dL (0.5-1.5); POTASSIUM 3.4 mmol/L (3.5-5.1)
[2020-10-10 07:53] VITALS: BP 123/61
[2020-10-10] MEDS: FENOFIBRIC ACID 135 MG PO SCH (09:00)
[2020-10-10] MEDS: PHENAZOPYRIDINE HCL 200 MG TABLET PO SCH ×3 (09:16→22:03)
[2020-10-10] MEDS: METOPROLOL TARTRATE 25 MG TAB PO SCH ×2 (09:16→22:03)
[2020-10-10] MEDS: HYDRALAZINE HCL 25 MG TABLET PO SCH ×3 (09:16→22:02)
[2020-10-10] MEDS: ISOSORBIDE MONO 30MG TAB SR PO SCH ×2 (09:17→22:02)
[2020-10-10] MEDS: ASPIRIN 81MG TAB.CHEW PO SCH (09:17)
[2020-10-10] MEDS: TAMSULOSIN HCL 0.4 MG CAP.ER.24H PO SCH (09:17)
[2020-10-10] MEDS: FAMOTIDINE 20MG TAB 20 MG TAB PO SCH (09:17)
[2020-10-10] MEDS: ENOXAPARIN SODIUM 30 MG/0.3 ML SQ SCH (09:18)
[2020-10-10] MEDS: SERTRALINE HCL 50 MG TABLET PO SCH (09:18)
--- NOTE | 2020-10-10 09:30 | NUR ---
PATIENT ON MEDICATION TURNING HIS URINE ORANGE/RED Addendum: 10/10/20 at 1529 by MEHDI WILLIAMSON RN RN Amended: Links added.
[2020-10-10] MEDS: FUROSEMIDE 40 MG TABLET PO SCH ×2 (10:47→17:04)
[2020-10-10 11:50] VITALS: BP 110/55
[2020-10-10] MEDS ORDERED: POTASSIUM CHLORIDE 20 MEQ ERTAB PO ONE (14:28)
[2020-10-10 16:26] VITALS: BP 116/50
--- NOTE | 2020-10-10 17:15 | NUR ---
RD FOLLOW UP Pt tolerating 75gm CC, Renal Non Dialysis diet order with no report of GI distress, Good PO intake. Pt with Fluid restriction in place, continues on Lasix medication. Monitored labs: BUN 50, Cr 3.1, GFR 21, BG 115, Alb 3.4, K 3.4, Sodium levels trending up. Decreased fluid retention as per EMR. Recommend potassium supplementation as medically feasible Recommend to monitor fluid status, consider discontinue Lasix as medically feasible RD to continue to monitor.
[2020-10-10 20:00] VITALS: BP 154/60
[2020-10-10] MEDS: ATORVASTATIN CALCIUM 40 MG TABLET PO SCH (22:02)
[2020-10-10] MEDS: TRAZODONE HCL 100 MG TABLET PO SCH (22:02)
[2020-10-10] MEDS: TIZANIDINE HCL 2 MG TABLET PO SCH (22:03)
[2020-10-11] VITALS: BP 149/51
[2020-10-11 04:00] VITALS: BP 119/56
[2020-10-11 06:29] LABS: BASOPHILS % (AUTO) 0.3 % (0.0-5.0); EOSINOPHILS % (AUTO) 2.7 % (0.0-8.0); HEMATOCRIT 32.2 % (42-54); LYMPHOCYTES % (AUTO) 12.4 % (21.0-51.0); MEAN CORPUSCULAR HEMOGLOBIN 28.9 pg (27.0-33.0); MEAN CORPUSCULAR HGB CONC 32.9 g/dL (32.0-36.0); MEAN CORPUSCULAR VOLUME 87.7 fL (79-99); MONOCYTES % (AUTO) 10.6 % (3.0-13.0); NEUTROPHILS % (AUTO) 73.5 % (40.0-77.0); PLATELET COUNT (AUTO) 203 K/uL (130-400); RED BLOOD CELL COUNT(AUTO) 3.67 MIL/uL (4.50-6.20); RED CELL DISTRIBUTION WIDTH 13.2 % (11.0-15.5); WHITE BLOOD COUNT (AUTO) 9.3 K/uL (4.8-10.8)
[2020-10-11 06:51] LABS: ALBUMIN 3.1 g/dL (3.5-5.0); BILIRUBIN,TOTAL 0.5 mg/dL (0.2-1.0); CREATININE 3.3 mg/dL (0.5-1.5); MAGNESIUM 2.4 mg/dL (1.80-2.40); POTASSIUM 3.5 mmol/L (3.5-5.1); TOTAL PROTEIN, SERUM 7.5 g/dL (6.0-8.3)
[2020-10-11 07:30] VITALS: BP 146/62
[2020-10-11] MEDS ORDERED: HYDR25 PO (08:05)
[2020-10-11] MEDS ORDERED: METO25 PO (08:05)
[2020-10-11] MEDS ORDERED: Isosorbide Mono 30MG Tab Sr PO (08:05)
[2020-10-11] MEDS ORDERED: PHEN-775 PO (08:05)
[2020-10-11] MEDS ORDERED: FAMO20TA8 PO (08:05)
[2020-10-11] MEDS ORDERED: TAMS-1 PO (08:05)
[2020-10-11] MEDS ORDERED: FURO40TA7 PO (08:05)
[2020-10-11] MEDS: FENOFIBRIC ACID 135 MG PO SCH (09:00)
[2020-10-11] MEDS: TAMSULOSIN HCL 0.4 MG CAP.ER.24H PO SCH (10:02)
[2020-10-11] MEDS: FUROSEMIDE 40 MG TABLET PO SCH ×2 (10:02→16:32)
[2020-10-11] MEDS: FAMOTIDINE 20MG TAB 20 MG TAB PO SCH (10:02)
[2020-10-11] MEDS: ASPIRIN 81MG TAB.CHEW PO SCH (10:03)
[2020-10-11] MEDS: ISOSORBIDE MONO 30MG TAB SR PO SCH (10:03)
[2020-10-11] MEDS: PHENAZOPYRIDINE HCL 200 MG TABLET PO SCH ×2 (10:04→14:28)
[2020-10-11] MEDS: ENOXAPARIN SODIUM 30 MG/0.3 ML SQ SCH (10:04)
[2020-10-11 10:05] LABS: APPEARANCE,URINE Clear (CLEAR); BILIRUBIN,URINE Small (NEGATIVE); COLOR,URINE Orange (YELLOW); GLUCOSE, URINE (UA) Negative (NEGATIVE); KETONES,URINE Negative (NEGATIVE); LEUKOCYTE ESTERASE ,URINE Trace (NEGATIVE); NITRATE,URINE Positive (NEGATIVE); OCCULT BLOOD,URINE Negative (NEGATIVE); PROTEIN,URINE POS 2+ mg/dL (NEGATIVE)
[2020-10-11] MEDS: SERTRALINE HCL 50 MG TABLET PO SCH (10:05)
[2020-10-11] MEDS: METOPROLOL TARTRATE 25 MG TAB PO SCH (10:05)
[2020-10-11] MEDS: HYDRALAZINE HCL 25 MG TABLET PO SCH ×2 (10:08→14:28)
[2020-10-11 10:42] LABS: BACTERIA,URINE Few /HPF (None Seen); SQUAMOUS EPITHELIAL CELL,UR 0-2 /HPF (0-2); WBC,URINE 0-1 /HPF (0-1)
[2020-10-11 11:00] VITALS: BP 144/65
== END 2020-10-11 18:00 | disposition home or self-care (01) | DRG 291 ==
LOC: EDH 16:12 → INTOOBSV 16:13 → OBSVTOIN 16:13 → EDHIP 16:13 → 3BH 19:33
PROVIDERS: ADMIT Internal Medicine Critical Care Medicine; ATTEND Internal Medicine Critical Care Medicine
PROC: 5A09357 Assistance with Respiratory Ventilation, Less than 24 Consecutive Hours, Continuous Positive Airway Pressure (ICD-10-PCS; principal; 2020-10-06)
DX: I13.0 Hypertensive heart and chronic kidney disease with heart failure and stage 1 through stage 4 chronic kidney disease, or unspecified chronic kidney disease (principal); I50.43 Acute on chronic combined systolic (congestive) and diastolic (congestive) heart failure; N17.9 Acute kidney failure, unspecified; N13.8 Other obstructive and reflux uropathy; N39.0 Urinary tract infection, site not specified; N18.4 Chronic kidney disease, stage 4 (severe); G47.33 Obstructive sleep apnea (adult) (pediatric); I25.5 Ischemic cardiomyopathy; E66.01 Morbid (severe) obesity due to excess calories; D63.1 Anemia in chronic kidney disease; Z20.828 Contact with and (suspected) exposure to other viral communicable diseases; N20.0 Calculus of kidney; I25.10 Atherosclerotic heart disease of native coronary artery without angina pectoris; N40.1 Benign prostatic hyperplasia with lower urinary tract symptoms; E11.22 Type 2 diabetes mellitus with diabetic chronic kidney disease; F32.9 Major depressive disorder, single episode, unspecified; F41.9 Anxiety disorder, unspecified; J44.9 Chronic obstructive pulmonary disease, unspecified; E78.5 Hyperlipidemia, unspecified; I49.3 Ventricular premature depolarization; D50.9 Iron deficiency anemia, unspecified; E87.6 Hypokalemia; Z68.35 Body mass index [BMI] 35.0-35.9, adult; I25.2 Old myocardial infarction; Z79.82 Long term (current) use of aspirin; Z79.899 Other long term (current) drug therapy; Z88.5 Allergy status to narcotic agent; Z95.5 Presence of coronary angioplasty implant and graft; Z95.1 Presence of aortocoronary bypass graft; Z86.73 Personal history of transient ischemic attack (TIA), and cerebral infarction without residual deficits; Z82.49 Family history of ischemic heart disease and other diseases of the circulatory system
CPT/HCPCS: 36415; 70450; 71045; 74176; 76770; 80048; 80053; 80069; 81001; 82140; 82607; 82728; 82948; 83036; 83735; 83880; 84132; 84484; 85025; 85027; 85610; 85730; 87077; 87088; 87186; 87426; 93005; 93306; 93880; 94660; 94760; 97039; A4344; G0378; J1650; J1940; J7030; U0003

== ENCOUNTER 2020-10-21 14:20 | Emergency (ER) | payer OTHER ==
[~2020-10-21 14:20] MED LIST changes: +AMLO-257 PO; +FURO40TA5 PO; +GABA600T10 PO; +HYDR-3420 PO; -HYDR25 PO; +LOSA100T58 PO; +SPIR25TA6 PO; -TAMS-1 PO
[2020-10-21 14:47] LABS: APPEARANCE,URINE CLEAR (CLEAR); BILIRUBIN,URINE NEGATIVE (NEGATIVE); COLOR,URINE ORANGE (YELLOW); GLUCOSE, URINE (UA) NEGATIVE (NEGATIVE); KETONES,URINE NEGATIVE (NEGATIVE); LEUKOCYTE ESTERASE ,URINE NEGATIVE (NEGATIVE); NITRATE,URINE POSITIVE (NEGATIVE); OCCULT BLOOD,URINE MODERATE (NEGATIVE); PROTEIN,URINE 30 mg/dL (NEGATIVE)
[2020-10-21 14:50] LABS: BASOPHILS % (AUTO) 0.4 % (0.0-5.0); EOSINOPHILS % (AUTO) 3.5 % (0.0-8.0); HEMATOCRIT 32.3 % (42-54); LYMPHOCYTES % (AUTO) 9.7 % (21.0-51.0); MEAN CORPUSCULAR HEMOGLOBIN 28.7 pg (27.0-33.0); MEAN CORPUSCULAR HGB CONC 31.9 g/dL (32.0-36.0); MONOCYTES % (AUTO) 7.8 % (3.0-13.0); NEUTROPHILS % (AUTO) 77.7 % (40.0-77.0); PLATELET COUNT (AUTO) 204 K/uL (130-400); RED BLOOD CELL COUNT(AUTO) 3.59 MIL/uL (4.50-6.20); WHITE BLOOD COUNT (AUTO) 13.3 K/uL (4.8-10.8)
[2020-10-21 15:12] LABS: CREATININE 3.5 mg/dL (0.5-1.5); POTASSIUM 4.2 mmol/L (3.5-5.1)
[2020-10-21 15:30] LABS: BACTERIA,URINE Rare /HPF (None Seen); RBC,URINE 26-50 /HPF (0-1); WBC,URINE 0-1 /HPF (0-1)
[2020-10-21 15:32] LABS: SQUAMOUS EPITHELIAL CELL,UR Rare /HPF (0-2)
[2020-10-21] MEDS ORDERED: FENTANYL CITRATE PF 50 MCG/1 ML 2ML VIAL ONE (18:49)
== END 2020-10-21 20:43 | disposition home or self-care (01) ==
LOC: EDH 14:20
DX: T83.84XA Pain due to genitourinary prosthetic devices, implants and grafts, initial encounter (principal); J44.9 Chronic obstructive pulmonary disease, unspecified; I50.9 Heart failure, unspecified; E11.9 Type 2 diabetes mellitus without complications; I25.10 Atherosclerotic heart disease of native coronary artery without angina pectoris; F41.9 Anxiety disorder, unspecified; Z88.6 Allergy status to analgesic agent; Z87.891 Personal history of nicotine dependence; Z98.890 Other specified postprocedural states
CPT/HCPCS: 36415; 51702; 80048; 81001; 85025; 87088; 96374; 99284; J3010

== ENCOUNTER → 2021-01-12 | Outpatient (CLI) | payer OTHER ==
[~2021-01-12] VITALS: Ht 175.3 cm; Wt 125.7 kg
[~2021-01-12] MED LIST changes: +SERT-440 PO; -SERT100T12 PO
[2021-01-12 13:39] LABS: BASOPHILS % (AUTO) 0.4 % (0.0-5.0); HEMATOCRIT 36.6 % (42-54); LYMPHOCYTES % (AUTO) 12.7 % (21.0-51.0); MEAN CORPUSCULAR HEMOGLOBIN 28.4 pg (27.0-33.0); MEAN CORPUSCULAR HGB CONC 32.5 g/dL (32.0-36.0); MEAN CORPUSCULAR VOLUME 87.4 fL (79-99); MONOCYTES % (AUTO) 8.1 % (3.0-13.0); NEUTROPHILS % (AUTO) 74.8 % (40.0-77.0); PLATELET COUNT (AUTO) 198 K/uL (130-400); RED BLOOD CELL COUNT(AUTO) 4.19 MIL/uL (4.50-6.20); RED CELL DISTRIBUTION WIDTH 13.3 % (11.0-15.5); WHITE BLOOD COUNT (AUTO) 10.4 K/uL (4.8-10.8)
[2021-01-12 13:50] LABS: APPEARANCE,URINE Cloudy (CLEAR); BILIRUBIN,URINE Negative (NEGATIVE); COLOR,URINE Yellow (YELLOW); GLUCOSE, URINE (UA) Negative (NEGATIVE); KETONES,URINE Negative (NEGATIVE); LEUKOCYTE ESTERASE ,URINE Moderate (NEGATIVE); NITRATE,URINE Negative (NEGATIVE); OCCULT BLOOD,URINE Small (NEGATIVE); PH,URINE 6.5 (5.0-8.0); PROTEIN,URINE 300 mg/dL (NEGATIVE); UROBILINOGEN,URINE 0.2 mg/dL (0.2-1.0)
[2021-01-12 13:53] LABS: CREATININE 2.4 mg/dL (0.5-1.5); POTASSIUM 3.6 mmol/L (3.5-5.1)
[2021-01-12 13:57] LABS: INR 1.01 (0.85-1.15)
[2021-01-12 13:58] LABS: PARTIAL THROMBOPLASTIN TIME 28.5 SEC (26.3-35.5)
[2021-01-12 14:07] LABS: BACTERIA,URINE Few /HPF (None Seen)
[2021-01-12 14:08] LABS: SQUAMOUS EPITHELIAL CELL,UR 0-2 /HPF (0-2)
[2021-01-17 09:24] VITALS: BP 216/91
== END | disposition home or self-care (01) ==
LOC: EDSTATUS 10:00 → DAH 10:00
PROVIDERS: ATTEND Urology
DX: J44.9 Chronic obstructive pulmonary disease, unspecified (principal); K21.9 Gastro-esophageal reflux disease without esophagitis; I10 Essential (primary) hypertension; E11.9 Type 2 diabetes mellitus without complications; I25.10 Atherosclerotic heart disease of native coronary artery without angina pectoris; E66.9 Obesity, unspecified; Z20.822 Contact with and (suspected) exposure to COVID-19; Z95.1 Presence of aortocoronary bypass graft
CPT/HCPCS: 36415; 71045; 80048; 81001; 85025; 85610; 85730; 87077; 87088; 87186; 93005; A6260; C9803; U0003

== ENCOUNTER 2021-03-01 07:06 | Day surgery (SDC) | payer OTHER ==
[2021-02-23 12:42] LABS: BASOPHILS % (AUTO) 0.3 % (0.0-5.0); EOSINOPHILS % (AUTO) 2.1 % (0.0-8.0); LYMPHOCYTES % (AUTO) 12.1 % (21.0-51.0); MEAN CORPUSCULAR VOLUME 84.9 fL (79-99); MONOCYTES % (AUTO) 6.4 % (3.0-13.0); NEUTROPHILS % (AUTO) 77.8 % (40.0-77.0); PLATELET COUNT (AUTO) 220 K/uL (130-400); RED BLOOD CELL COUNT(AUTO) 4.36 MIL/uL (4.50-6.20); WHITE BLOOD COUNT (AUTO) 12.2 K/uL (4.8-10.8)
[2021-02-23 12:55] LABS: BILIRUBIN,URINE NEGATIVE (NEGATIVE); COLOR,URINE YELLOW (YELLOW); GLUCOSE, URINE (UA) NEGATIVE (NEGATIVE); KETONES,URINE NEGATIVE (NEGATIVE); LEUKOCYTE ESTERASE ,URINE SMALL (NEGATIVE); NITRATE,URINE NEGATIVE (NEGATIVE); OCCULT BLOOD,URINE TRACE-LYSED (NEGATIVE); PROTEIN,URINE 100 mg/dL (NEGATIVE); UROBILINOGEN,URINE 0.2 mg/dL (0.2-1.0)
[2021-02-23 13:03] LABS: APPEARANCE,URINE SLIGHTLY CLOUDY (CLEAR)
[2021-02-23 13:03] LABS: CREATININE 3.2 mg/dL (0.5-1.5); POTASSIUM 4.1 mmol/L (3.5-5.1)
[2021-02-23 13:05] LABS: INR 1.05 (0.85-1.15); PROTHROMBIN TIME 11.4 SEC (9.6-11.6)
[2021-02-23 13:06] LABS: PARTIAL THROMBOPLASTIN TIME 29.3 SEC (26.3-35.5)
[2021-02-23 13:35] LABS: RBC,URINE 0-1 /HPF (0-1)
[2021-02-23 13:36] LABS: BACTERIA,URINE Few /HPF (None Seen); SQUAMOUS EPITHELIAL CELL,UR 0-2 /HPF (0-2)
[2021-02-28 09:00] VITALS: BP 155/60
[2021-03-01] VITALS (17 sets, daily range): BP systolic 137–175; BP diastolic 61–78
[~2021-03-01] VITALS: Ht 175.3 cm; Wt 122.2 kg
[~2021-03-01 07:06] MED LIST changes: +AEC81 PO; -AMLO-257 PO; +AMLO-258 PO; -ASPI-1197 PO; +FINA5TAB41 PO; -FURO40TA5 PO; +FURO80TA3 PO; -GABA600T10 PO; -HYDR-3420 PO; +HYDR-4060 PO; +HYDR-4154 PO; -LOSA100T58 PO; +NORT25CA3 PO; -SPIR25TA6 PO; +SULF1TAB89 PO; +TAMS-1 PO; +TIZA2CAP9 PO; -TIZA4TAB5 PO; +TRAM50TA4 PO
[2021-03-01] MEDS ORDERED: SODIUM CHLORIDE 0.9% 1000ML 1,000 ML IV ONE (08:05)
[2021-03-01] MEDS: VANCOMYCIN 1GM+NS 250ML 250 ML IV SCH ×2 (08:08→10:25)
[2021-03-01] MEDS ORDERED: FENTANYL CITRATE PF 50 MCG/1 ML 2ML VIAL ONE (08:26)
[2021-03-01] MEDS ORDERED: LIDOCAINE PF 2% 5ML ABBOJECT ONE (08:26)
[2021-03-01] MEDS ORDERED: ROCURONIUM 10MG/1ML SYR 10 MG/ML ML ONE (08:26)
[2021-03-01] MEDS ORDERED: PROPOFOL 10 MG/ML 20ML VIAL IV ONE (08:26)
[2021-03-01] MEDS ORDERED: SUCCINYLCHOLINE 200MG/10ML SYR ONE (08:26)
[2021-03-01] MEDS: MEROPENEM 500 MG VIAL IVP SCH ×2 (09:00→10:25)
[2021-03-01] MEDS ORDERED: EPHEDRINE SULFATE 50 MG/ML AMPULE ONE (09:05)
== END 2021-03-01 11:20 | disposition home or self-care (01) ==
LOC: DAH 07:06
PROVIDERS: ATTEND Urology
DX: R33.8 Other retention of urine (principal); N40.1 Benign prostatic hyperplasia with lower urinary tract symptoms; Z20.822 Contact with and (suspected) exposure to COVID-19; J44.9 Chronic obstructive pulmonary disease, unspecified; E11.9 Type 2 diabetes mellitus without complications; I25.10 Atherosclerotic heart disease of native coronary artery without angina pectoris; K21.9 Gastro-esophageal reflux disease without esophagitis; E66.01 Morbid (severe) obesity due to excess calories; I50.9 Heart failure, unspecified; Z86.14 Personal history of Methicillin resistant Staphylococcus aureus infection; Z98.890 Other specified postprocedural states; Z95.5 Presence of coronary angioplasty implant and graft; Z79.01 Long term (current) use of anticoagulants; Z79.899 Other long term (current) drug therapy
CPT/HCPCS: 36415; 52000; 71045; 80048; 81001; 85025; 85610; 85730; 87077; 87088; 87186; 93005; A4215; A4221; A4222; A4223; A4344; A4354; A4358; A4663; A6260; C9803; J0330; J2001; J2185; J2704; J3370; J3490; J7030 ×2; U0003; J3010

== ENCOUNTER 2021-08-16 23:28 | Emergency (ER) | payer OTHER ==
[~2021-08-16] VITALS: Ht 175.3 cm; Wt 127.5 kg
[~2021-08-16 23:28] MED LIST changes: +FAMO40TA7 PO; -FINA5TAB41 PO; +GABA600T10 PO
[2021-08-17] LABS: BASOPHILS % (AUTO) 0.3 % (0.0-5.0); EOSINOPHILS % (AUTO) 0.6 % (0.0-8.0); HEMATOCRIT 35.3 % (42-54); LYMPHOCYTES % (AUTO) 8.2 % (21.0-51.0); MEAN CORPUSCULAR HEMOGLOBIN 26.5 pg (27.0-33.0); MEAN CORPUSCULAR HGB CONC 31.4 g/dL (32.0-36.0); MEAN CORPUSCULAR VOLUME 84.2 fL (79-99); MONOCYTES % (AUTO) 7.3 % (3.0-13.0); NEUTROPHILS % (AUTO) 82.1 % (40.0-77.0); PLATELET COUNT (AUTO) 217 K/uL (130-400); RED BLOOD CELL COUNT(AUTO) 4.19 MIL/uL (4.50-6.20); RED CELL DISTRIBUTION WIDTH 14.2 % (11.0-15.5); WHITE BLOOD COUNT (AUTO) 11.7 K/uL (4.8-10.8)
[2021-08-17 00:04] LABS: CREATININE 1.9 mg/dL (0.5-1.5); POTASSIUM 4.3 mmol/L (3.5-5.1)
[2021-08-17 00:14] LABS: ALBUMIN 3.4 g/dL (3.5-5.0); BILIRUBIN,TOTAL 0.3 mg/dL (0.2-1.0)
[2021-08-17 00:21] LABS: CRP QUANTITATIVE 15.3 mg/L (0.00-9.0); MAGNESIUM 2.2 mg/dL (1.80-2.40)
[2021-08-17 00:23] LABS: INR 0.97 (0.85-1.15); PROTHROMBIN TIME 10.6 SEC (9.6-11.6)
[2021-08-17 00:24] LABS: PARTIAL THROMBOPLASTIN TIME 28.5 SEC (26.3-35.5)
[2021-08-17 00:38] LABS: B-TYPE NATRIURETIC PEPTIDE 119 pg/mL (0-100)
[2021-08-17 02:47] LABS: BILIRUBIN,URINE Negative (NEGATIVE); COLOR,URINE Yellow (YELLOW); GLUCOSE, URINE (UA) TRACE mg/dL (NEGATIVE); KETONES,URINE Negative (NEGATIVE); LEUKOCYTE ESTERASE ,URINE Negative (NEGATIVE); NITRATE,URINE Negative (NEGATIVE); OCCULT BLOOD,URINE Negative (NEGATIVE); PROTEIN,URINE POS 2+ mg/dL (NEGATIVE)
[2021-08-17 02:48] LABS: APPEARANCE,URINE CLEAR (CLEAR)
[2021-08-17 02:56] LABS: BACTERIA,URINE None Seen /HPF (None Seen); RBC,URINE None Seen /HPF (0-1); SQUAMOUS EPITHELIAL CELL,UR Rare /HPF (0-2); WBC,URINE None Seen /HPF (0-1)
[2021-08-17 03:00] VITALS: BP 159/74
[2021-08-17] MEDS ORDERED: ALBU8.5H8 IH (03:04)
== END 2021-08-17 04:00 | disposition home or self-care (01) ==
LOC: EDH 23:28
DX: F45.8 Other somatoform disorders (principal); E78.5 Hyperlipidemia, unspecified; E11.21 Type 2 diabetes mellitus with diabetic nephropathy; E66.01 Morbid (severe) obesity due to excess calories; Z68.41 Body mass index [BMI] 40.0-44.9, adult; Z20.822 Contact with and (suspected) exposure to COVID-19; I11.0 Hypertensive heart disease with heart failure; I50.9 Heart failure, unspecified; I25.10 Atherosclerotic heart disease of native coronary artery without angina pectoris; Z95.0 Presence of cardiac pacemaker; Z95.818 Presence of other cardiac implants and grafts; Z88.5 Allergy status to narcotic agent; Z79.899 Other long term (current) drug therapy; Z79.82 Long term (current) use of aspirin
CPT/HCPCS: 36415 ×2; 71045; 80053; 81001; 82550; 83735; 83874; 83880; 84484; 85025; 85378; 85610; 85730; 86140; 87635; 87804 ×2; 87880; 93005; 99285; C9803

== ENCOUNTER 2021-11-12 20:35 | Emergency (ER) | payer OTHER ==
[~2021-11-12] VITALS: Ht 175.3 cm; Wt 127.0 kg
[~2021-11-12 20:35] MED LIST changes: +ALBU8.5H8 IH
[2021-11-12 21:53] LABS: BASOPHILS % (AUTO) 0.6 % (0.0-5.0); EOSINOPHILS % (AUTO) 0.6 % (0.0-8.0); LYMPHOCYTES % (AUTO) 9.1 % (21.0-51.0); MEAN CORPUSCULAR HEMOGLOBIN 27.8 pg (27.0-33.0); MEAN CORPUSCULAR HGB CONC 31.9 g/dL (32.0-36.0); MEAN CORPUSCULAR VOLUME 87.2 fL (79-99); MONOCYTES % (AUTO) 6.6 % (3.0-13.0); NEUTROPHILS % (AUTO) 81.5 % (40.0-77.0); PLATELET COUNT (AUTO) 215 K/uL (130-400); RED BLOOD CELL COUNT(AUTO) 4.13 MIL/uL (4.50-6.20); WHITE BLOOD COUNT (AUTO) 13.9 K/uL (4.8-10.8)
[2021-11-12 22:01] LABS: POTASSIUM 4.8 mmol/L (3.5-5.1)
[2021-11-12 22:03] LABS: APPEARANCE,URINE Clear (CLEAR); BILIRUBIN,URINE Negative (NEGATIVE); COLOR,URINE Yellow (YELLOW); GLUCOSE, URINE (UA) Negative (NEGATIVE); KETONES,URINE Negative (NEGATIVE); LEUKOCYTE ESTERASE ,URINE Negative (NEGATIVE); NITRATE,URINE Negative (NEGATIVE); OCCULT BLOOD,URINE Negative (NEGATIVE); PROTEIN,URINE POS 1+ mg/dL (NEGATIVE); UROBILINOGEN,URINE 0.2 mg/dL (0.2-1.0)
[2021-11-12 22:06] LABS: ALBUMIN 3.2 g/dL (3.5-5.0); BILIRUBIN,TOTAL 0.4 mg/dL (0.2-1.0); TOTAL PROTEIN, SERUM 7.6 g/dL (6.0-8.3)
[2021-11-12 22:10] LABS: BACTERIA,URINE Rare /HPF (None Seen); WBC,URINE 0-1 /HPF (0-1)
[2021-11-12 22:11] LABS: SQUAMOUS EPITHELIAL CELL,UR Few /HPF (0-2)
[2021-11-12 22:12] LABS: COARSE GRANULAR CASTS,URINE 0-2 /LPF (None Seen)
[2021-11-12] MEDS ORDERED: TAMS-1 PO (22:28)
[2021-11-12 22:30] VITALS: BP 143/74
[2021-11-12] MEDS ORDERED: MAGNESIUM CITRATE 296 ML SOLUTION PO ONE (22:30)
[2021-11-12] MEDS ORDERED: MAGNESIUM CITRATE 296 ML SOLUTION ONE (22:40)
== END 2021-11-12 22:53 | disposition home or self-care (01) ==
LOC: EDH 20:35
DX: R33.9 Retention of urine, unspecified (principal); E11.9 Type 2 diabetes mellitus without complications; E78.00 Pure hypercholesterolemia, unspecified; I11.0 Hypertensive heart disease with heart failure; I25.10 Atherosclerotic heart disease of native coronary artery without angina pectoris; I50.9 Heart failure, unspecified; Z79.82 Long term (current) use of aspirin; Z79.899 Other long term (current) drug therapy; Z88.5 Allergy status to narcotic agent; Z95.1 Presence of aortocoronary bypass graft
CPT/HCPCS: 36415; 51702; 80053; 81001; 85025

== ENCOUNTER 2021-12-14 09:46 | Emergency (ER) | payer OTHER ==
[~2021-12-14] VITALS: Ht 167.6 cm; Wt 129.3 kg
[2021-12-14 10:16] LABS: INFLUENZA TYPE A NEGATIVE FOR TYPE A (NEG); INFLUENZA TYPE B NEGATIVE FOR TYPE B (NEG)
[2021-12-14 10:25] LABS: BASOPHILS % (AUTO) 0.5 % (0.0-5.0); EOSINOPHILS % (AUTO) 3.2 % (0.0-8.0); HEMATOCRIT 33.3 % (42-54); LYMPHOCYTES % (AUTO) 11.7 % (21.0-51.0); MEAN CORPUSCULAR HEMOGLOBIN 27.1 pg (27.0-33.0); MEAN CORPUSCULAR HGB CONC 31.2 g/dL (32.0-36.0); MEAN CORPUSCULAR VOLUME 86.7 fL (79-99); MONOCYTES % (AUTO) 6.9 % (3.0-13.0); NEUTROPHILS % (AUTO) 75.8 % (40.0-77.0); PLATELET COUNT (AUTO) 227 K/uL (130-400); RED BLOOD CELL COUNT(AUTO) 3.84 MIL/uL (4.50-6.20); RED CELL DISTRIBUTION WIDTH 14.7 % (11.0-15.5)
[2021-12-14 10:42] LABS: POTASSIUM 4.2 mmol/L (3.5-5.1)
[2021-12-14 10:45] LABS: B-TYPE NATRIURETIC PEPTIDE 117 pg/mL (0-100)
[2021-12-14 10:49] LABS: INR 0.99 (0.85-1.15); PROTHROMBIN TIME 10.8 SEC (9.6-11.6)
[2021-12-14 10:50] LABS: PARTIAL THROMBOPLASTIN TIME 29.7 SEC (26.3-35.5)
[2021-12-14 10:51] LABS: ALBUMIN 2.9 g/dL (3.5-5.0); BILIRUBIN,TOTAL 0.3 mg/dL (0.2-1.0); TOTAL PROTEIN, SERUM 7.3 g/dL (6.0-8.3)
[2021-12-14 11:52] LABS: APPEARANCE,URINE CLOUDY (CLEAR); BILIRUBIN,URINE NEGATIVE (NEGATIVE); COLOR,URINE YELLOW (YELLOW); GLUCOSE, URINE (UA) NEGATIVE (NEGATIVE); KETONES,URINE NEGATIVE (NEGATIVE); LEUKOCYTE ESTERASE ,URINE MODERATE (NEGATIVE); NITRATE,URINE NEGATIVE (NEGATIVE); OCCULT BLOOD,URINE SMALL (NEGATIVE); PH,URINE 5.5 (5.0-8.0); PROTEIN,URINE 100 mg/dL (NEGATIVE); UROBILINOGEN,URINE 0.2 mg/dL (0.2-1.0)
[2021-12-14 12:31] LABS: BACTERIA,URINE Moderate /HPF (None Seen)
[2021-12-14 12:32] LABS: SQUAMOUS EPITHELIAL CELL,UR 0-2 /HPF (0-2)
[2021-12-14] MEDS ORDERED: 0.9%NACL 1000ML 1,000 ML IV ONE (13:00)
[2021-12-14 13:33] LABS: AMPHET/METH SCREEN,URINE NEGATIVE (NEGATIVE); BARBITURATE SCREEN, URINE NEGATIVE (NEGATIVE); BENZODIAZEPINES SCREEN,URINE NEGATIVE (NEGATIVE); CANNABINOID SCREEN,URINE NEGATIVE (NEGATIVE); COCAINE SCREEN,URINE NEGATIVE (NEGATIVE); OPIATE SCREEN,URINE NEGATIVE (NEGATIVE); PHENCYCLIDINE SCREEN,URINE NEGATIVE (NEGATIVE)
[2021-12-14] MEDS ORDERED: IOHEXOL-350 75 ML VIAL IV ONE (14:24)
[2021-12-14] MEDS ORDERED: LEVOFLOXACIN 500 MG/D5W 100 ML 100 ML IV SCH (16:30)
[2021-12-14] MEDS ORDERED: KETOROLAC 30MG VIAL (30MG/ML) IV ONE (16:30)
[2021-12-14 19:49] VITALS: BP 96/42
[2021-12-14] MEDS ORDERED: CEPH500B PO (19:50)
== END 2021-12-14 20:02 | disposition home or self-care (01) ==
LOC: EDH 09:46
DX: N39.0 Urinary tract infection, site not specified (principal); M62.81 Muscle weakness (generalized); I10 Essential (primary) hypertension; E78.00 Pure hypercholesterolemia, unspecified; E11.40 Type 2 diabetes mellitus with diabetic neuropathy, unspecified; Z95.0 Presence of cardiac pacemaker; Z88.5 Allergy status to narcotic agent; Z79.82 Long term (current) use of aspirin; Z79.899 Other long term (current) drug therapy; Z20.822 Contact with and (suspected) exposure to COVID-19
CPT/HCPCS: 36415; 70450; 70496; 70498; 70551; 71045; 80053; 80305; 81001; 82550; 82948; 83721; 83880; 84484 ×2; 85025; 85610; 85730; 87077; 87088; 87186; 87635; 87804 ×2; 93005 ×2; 93880; 96365; 96366; 96375; 99285; C9803; J1885; J1956; Q9967; 96374

== ENCOUNTER 2022-05-14 21:43 | Emergency (ER) | payer OTHER ==
[~2022-05-14] VITALS: Ht 175.3 cm; Wt 128.8 kg
[~2022-05-14 21:43] MED LIST changes: +CEPH500B PO
[2022-05-14 21:45] VITALS: BP 160/95
== END 2022-05-14 23:31 | disposition home or self-care (01) ==
LOC: EDH 21:43
DX: T83.091A Other mechanical complication of indwelling urethral catheter, initial encounter (principal); R33.9 Retention of urine, unspecified; E11.9 Type 2 diabetes mellitus without complications; I10 Essential (primary) hypertension; E78.00 Pure hypercholesterolemia, unspecified; E66.01 Morbid (severe) obesity due to excess calories; Z68.41 Body mass index [BMI] 40.0-44.9, adult; Z88.5 Allergy status to narcotic agent; Z79.899 Other long term (current) drug therapy; Z79.82 Long term (current) use of aspirin; Y84.8 Other medical procedures as the cause of abnormal reaction of the patient, or of later complication, without mention of misadventure at the time of the procedure; Y92.89 Other specified places as the place of occurrence of the external cause
CPT/HCPCS: 51702

== ENCOUNTER → 2023-06-27 | Outpatient (CLI) | payer OTHER | END | disposition home or self-care (01) | LOC: SHCH 14:23 | PROVIDERS: ATTEND Internal Medicine Cardiovascular Disease | DX: R06.09 Other forms of dyspnea (principal); I10 Essential (primary) hypertension; E11.9 Type 2 diabetes mellitus without complications; E78.5 Hyperlipidemia, unspecified | CPT/HCPCS: 93306 ==

== ENCOUNTER → 2023-07-31 | Outpatient (CLI) | payer OTHER | END | disposition home or self-care (01) | LOC: SHCH 09:59 | PROVIDERS: ATTEND Internal Medicine Cardiovascular Disease | DX: I87.2 Venous insufficiency (chronic) (peripheral) (principal); I87.1 Compression of vein | CPT/HCPCS: 93970 ==

== ENCOUNTER → 2024-03-15 | Outpatient (CLI) | payer OTHER ==
[~2024-03-15] MED LIST changes: -AMLO-258 PO; +AMLO2.5T2 PO; -CEPH500B PO; +CLOP-31 PO; +DAPA10TA PO; +DIAZ10TA4 PO; -FAMO40TA7 PO; -FENO135C4 PO; +FERR-72 PO; +FOLI0.8T22 PO; +FURO40TA7 PO; -FURO80TA3 PO; +HUMLIS7525 SQ; -HYDR-4154 PO; -METO-391 PO; +METO2.5T2 PO; +METO50TA9 PO; +MONT-46 PO; -NORT25CA3 PO; +NORT75CA PO; +SACU1TAB7 PO; +SEMA14TA2 PO; -SERT-440 PO; +SPIR25TA6 PO; -SULF1TAB89 PO; -TAMS-1 PO; -TIZA2CAP9 PO; -TRAM50TA4 PO; -TRAZ-187 PO
[2024-03-15 16:46] LABS: ALBUMIN 2.5 g/dL (3.5-5.0); BILIRUBIN,TOTAL 0.4 mg/dL (0.2-1.0); CREATININE 3.4 mg/dL (0.5-1.3); POTASSIUM 4.6 mmol/L (3.5-5.1); TOTAL PROTEIN, SERUM 7.5 g/dL (6.0-8.3)
== END | disposition home or self-care (01) ==
LOC: LAB 13:21
PROVIDERS: ATTEND Internal Medicine Cardiovascular Disease
DX: I25.10 Atherosclerotic heart disease of native coronary artery without angina pectoris (principal); I25.5 Ischemic cardiomyopathy
CPT/HCPCS: 36415; 80053; 83880